=== PATIENT | male | born 1970 | race Caucasian/White ===

== ENCOUNTER 2023-06-24 09:26 | Outpatient (OUT) | payer BC, SELFPAY ==
[2023-06-24 10:11] LABS: Basophils Percent Auto 0.3 % (0.2-2.0); Eosinophils Absolute Auto 0.1 10^3/uL (0.0-0.7); Eosinophils Percent Auto 1.9 % (0.9-7.0); Hematocrit 45.4 % (42.0-54.0); Hemoglobin 15.3 g/dL (14.0-18.0); Immature Granulocytes Abs Auto 0.02 10^3/uL (0.00-0.03); Immature Granulocytes Pct Auto 0.3 % (0.0-0.5); Lymphocytes Absolute Auto 1.5 10^3/uL (1.2-3.8); Lymphocytes Percent Auto 25.3 % (20.5-60.0); Mean Corpuscular HGB Conc 33.7 g/dL (29.9-35.2); Mean Corpuscular Hemoglobin 32.2 pg (25.9-34.0); Mean Corpuscular Volume 95.6 fL (80.0-94.0); Mean Platelet Volume 9.9 fL (9.5-13.5); Monocytes Absolute Auto 0.5 10^3/uL (0.3-0.8); Monocytes Percent Auto 8.7 % (1.7-12.0); Neutrophils Absolute Auto 3.7 10^3/uL (1.4-6.5); Neutrophils Percent Auto 63.5 % (43.0-75.0); Platelet Count 234 10^3/uL (150-450); Red Blood Count 4.75 10^6/uL (4.70-6.10); Red Cell Distribution Width 12.8 % (11.0-15.0); White Blood Count 5.8 10^3/uL (4.0-11.0)
[2023-06-24 10:22] LABS: Microalbumin Urine Random <1.3 mg/dL (<=30.0)
[2023-06-24 11:01] LABS: Alanine Aminotransferase 48 U/L (16-63); Albumin Globulin Ratio 1.3; Albumin Level 4.2 g/dL (3.4-5.0); Alkaline Phosphatase 46 U/L (46-116); Aspartate Amino Transferase 23 U/L (15-37); BUN Creatinine Ratio 16.3; Bilirubin Total 0.3 mg/dL (0.2-1.0); Calcium 9.2 mg/dL (8.5-10.1); Carbon Dioxide 26.5 mmol/L (21.0-32.0); Chloride 105 mmol/L (98-107); Chol HDL Ratio 4.2; Cholesterol 232 mg/dL (<=200); Estimated GFR (African America >60 (>=60); Estimated GFR (Non-African Ame >60 (>=60); Globulin 3.3 g/dL; Glucose 129 mg/dL (74-106); HDL Cholesterol 55 mg/dL (40-60); Potassium 4.5 mmol/L (3.5-5.1); Sodium 140 mmol/L (136-145); Total Protein 7.5 g/dL (6.4-8.2); Triglycerides 64 mg/dL (<=150); VLDL CHOLESTEROL 12.8 mg/dL
[2023-06-24 11:11] LABS: Estimated Average Glucose 123 mg/dL; Glycohemoglobin A1C 5.9 % (4.5-6.2)
[2023-06-24 12:30] LABS: Prostate Specific Antigen Scrn 0.49 ng/mL (<=4.00)
== END 2023-06-24 09:27 | disposition home or self-care (01) ==
LOC: LAB 09:31
PROVIDERS: PCP Internal Medicine; Visit Provider Internal Medicine
DX: Z00.00 Encounter for general adult medical examination without abnormal findings (principal); Z12.5 Encounter for screening for malignant neoplasm of prostate
CPT/HCPCS: 36415; 80053; 80061; 82043; 83036; 85025; G0103

== ENCOUNTER 2023-11-30 13:46 | Outpatient (OUT) | payer BC, SELFPAY ==
[2023-11-30 14:56] LABS: Estimated Average Glucose 126 mg/dL
== END 2023-11-30 13:47 | disposition home or self-care (01) ==
LOC: LAB 13:49
PROVIDERS: PCP Internal Medicine; Visit Provider Internal Medicine
DX: E11.65 Type 2 diabetes mellitus with hyperglycemia (principal)
CPT/HCPCS: 36415; 83036

== ENCOUNTER 2024-07-14 21:13 | Emergency (ER) | payer BC, SELFPAY ==
--- OUTSIDE RECORDS SUMMARY | 2024-07-14 21:23 | XMS_ITS | CCD ---
Author Organization [facility] Care Team Providers Care Commanding Officer Garage Name Role Phone RODRIGO CASTORENA Consulting Unavailable STARLA WOODRUFF Admitting Unavailable KULDEEP, DR SALAZAR Primary Care Unavailable STARLA WOODRUFF Attending Unavailable KULDEEP, DR SALAZAR Primary Care Unavailable KULDEEP, DR SALAZAR Admitting Unavailable KULDEEP, DR SALAZAR Attending Unavailable KULDEEP, DR SALAZAR Admitting Unavailable KULDEEP, DR SALAZAR Attending Unavailable KULDEEP, DR SALAZAR Consulting Unavailable KULDEEP, DR SALAZAR Primary Care Unavailable Kuldeep, Ashish Unavailable REGINA COFFEY Attending REGINA Pitts Referring Unavailable Allergies Allergy Classification Reported Allergen(s) Allergy Type Date of Onset Reaction(s) Facility (1 source) Penicillins Drug allergy (disorder) 4 [facility] Repository (4 sources) Substance with penicillin structure and antibacterial mechanism of action (substance) Drug allergy Unknown [employer] Other Medications Current Medications Medication Drug Class(es) Dates Sig (Normalized) Sig (Original) atorvastatin 40 mg oral tablet (6 sources) HMG-CoA Reductase Inhibitor Start: 02-11-2024 take 40 mg by mouth once daily Atorvastatin Active 40 MG PO Daily February 11, 2024 12:00am take 1 tablet by aminata every twenty-four hours Atorvastatin Calcium 40 MG 1 tablet Oral ly Once a day Active azithromycin 250 mg oral tablet (2 sources) Macrolide Antimicrobial Start: 07-20-2023 Azithromycin 250 MG as directed Orally daily for 5 days Jun, Active 24 hr buPROPion hydrochloride 300 mg extended release oral tablet (7 sources) Aminoketone Start: 06-11-2024 take 1 tablet by mouth once daily Bupropion Hcl Active 0 .ROUTE .COMPLEX 90 June 11, 2024 1:27pm TAKE 1 TABLET BY MOUTH DAILY Start: 02-11-2024 End: 06-11-2024 take 300 mg by mouth once daily Bupropion Hcl Discontinued 300 MG PO Daily February 11, 2024 12:00am June 11, 2024 1:28pm buPROPion HCl ER (XL) 300 MG TAKE ONE TABLET BY MOUTH DAILY Orally Once a day Active citalopram 20 mg oral tablet (7 sources) Serotonin Reuptake Inhibitor Start: 06-11-2024 take 1 tablet by mouth once daily in the evening Citalopram Active 0 .ROUTE .COMPLEX 90 June 11, 2024 1:27pm TAKE ONE TABLET BY MOUTH EVERY EVENING Start: 02-11-2024 End: 06-11-2024 take 20 mg by mouth once daily at bedtime Citalopram Discontinued 20 MG PO Daily at bedtime February 11, 2024 12:00am June 11, 2024 1:28pm Citalopram Medora bromide 20 MG TAKE ONE TABLET BY MOUTH EVERY EVENING Orally Once a day Active Completed/Discontinued Medications Medication Drug Class(es) Dates Sig (Normalized) Sig (Original) doxycycline hyclate 100 mg oral capsule (4 sources) Tetracycline-clas s Drug Start: 01-04-2023 take 1 capsule by mouth twice daily as needed Doxycycline Hyclate 100 MG 1 capsule Orally Twice daily for 7 days Dec, Not-Taking/PRN Problems Active Problems Problem Classification Problem Date Documented Da te Episodic/Chronic Acute bronchitis (5 sources) Acute bronchitis; Translations: [Acute bronchitis due to other specified organisms] Episodic Allergic reactions (16 sources) Urticaria, unspecified; Translations: [Urticaria] Onset: 08-22-2018 Episodic Anxiety disorders (9 sources) Generalized anxiety disorder; Translations: [Generalized anxiety disorder] Chronic Diabetes mellitus with complications (18 sources) Hyperglycemia due to type 2 diabetes mellitus; Translations: [Type 2 diabetes mellitus with hyperglycemia] Chronic Diabetes mellitus without complication (16 sources) Impaired fasting glycemia; Translations: [Impaired fasting glucose] Episodic Disorders of lipid metabolism (9 sources) Hypercholesterolemi a; Translations: [Pure hypercholesterolemi a, unspecified] Chronic Gastrointestinal hemorrhage (8 sources) Hemorrhage of rectum and anus; Translations: [Hemorrhage of anus and rectum] Episodic Hyperplasia of prostate (8 sources) Large prostate ; Translations: [Benign prostatic hyperplasia without lower urinary tract symptoms] Chronic Malaise and fatigue (4 sources) Malaise; Translations: [Other malaise] Episodic Mood disorders (20 sources) Single episode of major depression in full remission; Translations: [Major depressive disorder, single episode, in full remission] Chronic Other circulatory disease (1 source) Elevated blood-pressure reading, without diagnosis of hypertension Episodic Other circulatory disease (2 sources) Elevated blood-pressure reading without diagnosis of hypertension; Translations: [Elevated blood-pressure reading, without diagnosis of hypertension] 02-11-2024 Episodic Other liver diseases (1 source) Steatosis of liver; Translations: [Fatty (change of) liver, not elsewhere classified] 06-23-2024 Chronic Other liver diseases (1 source) Fatty (change of) liver, not elsewhere classified; Translations: [Other chronic nonalcoholic liver disease] 06-25-2024 Chronic Other nutritional; endocrine; and metabolic disorders (6 sources) Overweight; Translations: [Overweight] 02-11-2024 Episodic Other nutritional; endocrine; and metabolic disorders (2 sources) Overweight; Translations: [Overweight] Episodic Other screening for suspected conditions (not mental disorders or infectious disease) (4 sources) Encounter for screening for malignant neoplasm of prostate; Translations: [Patient encounter status] Onset: 03-24-2022 Episodic Other skin disorders (1 source) Rash and other nonspecific skin eruption Episodic Other skin disorders (1 source) Disorder of skin of scrotum; Translations: [Rash and other nonspecific skin eruption] 02-11-2024 Episodic Other upper respiratory disease (4 sources) Seasonal allergic rhinitis; Translations: [Other seasonal allergic rhinitis] Chronic Other upper respiratory infections (20 sources) Acute pharyngitis, unspecified; Translations: [Acute pharyngitis] Onset: 05-13-2014 Episodic Unclassified (4 sources) Exposure to acute respiratory syndrome coronavirus 2; Translations: [Contact with and (suspected) exposure to COVID-19] Past or Other Problems Problem Classification Problem Date Documented Da te Episodic/Chronic Chronic obstructive pulmonary disease and bronchiectasis (4 sources) Bronchitis; Translations: [Bronchitis, not specified as acute or chronic] Onset: 07-31-2013 Episodic Nausea and vomiting (4 sources) Nausea; Translations: [Nausea] Onset: 09-28-2017 Episodic Other injuries and conditions due to external causes (4 sources) Traumatic AND/OR non-traumatic injury; Translations: [Other injury of unspecified body region, initial encounter] Onset: 02-01-2014 Episodic Spondylosis; intervertebral disc disorders; other back problems (4 sources) Nerve root disorder; Translations: [Radiculopathy, site unspecified] Onset: 02-01-2014 Episodic Unclassified (1 source) Suspected COVID-19 virus infection Z20.822 Viral infection (4 sources) Disease caused by 2019-nCoV; Translations: [COVID-19] Results Test Name Value Interpretation Reference Range Facil ity US RUQon 02-08-2024 US RUQ US RUQ History: Right upper quadrant pain. Nausea. Technique: Sonography of the right upper quadrant was performed. Comparison: None. Result: Pancreas: Normal sonographic appearance of the visualized portions with the tail not visualized. Liver: Diffusely increased echogenicity with decreased through-transmission, suggestive of steatosis. Enlarged, measuring around 18.4 cm in length. Focal area of relative decreased echogenicity near the gallbladder, measuring approximately 2.8 x 1.2 x 1.1 cm suggestive of fatty sparing. No suspicious lesion sonographically. Gallbladder: Normal caliber without cholelithiasis, sludge, wall thickening, or pericholecystic fluid. Biliary Ducts: No intrahepatic or extrahepatic bile duct dilation. CBD measures 0.4 cm. Right Kidney: Imaged portions unremarkable. Ascites: None. IMPRESSION: Impression: Diffuse hepatic steatosis with focal fatty sparing adjacent to the gallbladder. Unremarkable sonographic appearance of the gallbladder. ELECTRONICALLY SIGNED BY: Harry Quinones MD Normal Not Available CBC AUTO DIFFon 03-20-2022 BASO # 0.0 103/ul Normal 0.0-0.1 [facility] Comment on above: Performed By: #### C BC #### [facility] [address] [address] [address] Matt Hoang Basophils/100 WBC (Bld) 0.2 % Normal 0.2-2.0 [facility] Comment on above: Performed By: #### C BC #### [facility] [address] [address] [address] Matt Hoang EO # 0.1 103/ul Normal 0.0-0.7 [facility] Comment on above: Performed By: #### C BC #### [facility] [address] [address] [address] Matt Hoang Eosinophils/100 WBC (Bld) 1.5 % Normal 0.9-7.0 [facility] Comment on above: Performed By: #### C BC #### [facility] [address] [place] [address] Dr. Matt Hoang Erythrocyte distribution width (RBC) [Ratio] 12.5 % Normal 11.0-15.0 [facility] Comment on above: Performed By: #### C BC #### [facility] [address] [place] [address] Dr. Matt Hoang Hematocrit (Bld) [Volume fraction] 46.7 % Normal 42.0-54.0 [facility] Comment on above: Performed By: #### C BC #### [facility] [address] [place] [address] Dr. Matt Hoang Hemoglobin (Bld) [Mass/Vol] 15.4 g/dL Normal 14.0-18.0 [facility] Comment on above: Performed By: #### C BC #### [facility] [address] [place] [address] Dr. Matt Hoang IG # 0.01 10e3/ul Normal 0.00-0.03 [facility] Comment on above: Performed By: #### C BC #### [facility] [address] [place] [address] Dr. Matt Hoang IG % 0.2 % Normal 0.0-0.5 [facility] Comment on above: Performed By: #### C BC #### [facility] [address] [place] [address] Dr. Matt Hoang LYMPH # 1.8 103/ul Normal 1.2-3.8 [facility] Comment on above: Performed By: #### C BC #### [facility] [address] [place] [address] Dr. Matt Hoang Lymphocytes/100 WBC (Bld) 30.0 % Normal 20.5-60.0 [facility] Comment on above: Performed By: #### C BC #### [facility] [address] [place] [address] Dr. Matt Hoang MANUAL DIFF REQ NO Normal [facility] Comment on above: Performed By: #### C BC #### [facility] [address] [address] [address] Matt Hoang MCH (RBC) [Entitic mass] 31.5 pg Normal 25.9-34.0 [facility] Comment on above: Performed By: #### C BC #### [facility] [address] [place] [address] Dr. Matt Hoang MCHC (RBC) [Mass/Vol] 33.0 g/dL Normal 29.9-35.2 [facility] Comment on above: Performed By: #### C BC #### [facility] [address] [place] [address] Dr. Matt Hoang MCV (RBC) [Entitic vol] 95.5 fL Critically high 80.0-94.0 [facility] Comment on above: Performed By: #### C BC #### [facility] [address] [place] [address] Dr. Matt Hoang MONO # 0.6 103/ul Normal 0.3-0.8 [facility] Comment on above: Performed By: #### C BC #### [facility] [address] [place] [address] Dr. Matt Hoang Monocytes/100 WBC (Bld) 10.6 % Normal 1.7-12.0 [facility] Comment on above: Performed By: #### C BC #### [facility] [address] [place] [address] Dr. Matt Hoang NEUT # 3.4 103/ul Normal 1.4-6.5 [facility] Comment on above: Performed By: #### C BC #### [facility] [address] [place] [address] Dr. Matt Hoang Neutrophils/100 WBC (Bld) 57.5 % Normal 43.0-75.0 [facility] Comment on above: Performed By: #### C BC #### [facility] [address] [place] [address] Dr. Matt Hoang Platelet mean volume (Bld) [Entitic vol] 9.6 fL Normal 9.5-13.5 [facility] Comment on above: Performed By: #### C BC #### [facility] [address] [address] [address] Matt Hoang PLT 231 103/ul Normal 150-450 [facility] Comment on above: Performed By: #### C BC #### [facility] [address] [address] [address] Matt Hoang RBC 4.89 106/ul Normal 4.70-6.10 [facility] Comment on above: Performed By: #### C BC #### [facility] [address] [address] [address] Matt Hoang WBC 5.8 103/ul Normal 4.0-11.0 [facility] Comment on above: Performed By: #### C BC #### [facility] [address] [place] [address] Dr. Matt Hoang LIPID PROFILEon 03-20-2022 CHOL-HDL RATIO NORM SEE BELOW Normal [facility] Comment on above: Result Comment: 3.3 - 4.4 LOW RISK 4.4 - 7.1 AVERAGE RISK 7.1 - 11.0 MODERATE RISK >11.0 HIGH RISK Performed By: #### L IPID, CMP #### [facility] [address] [place] [address] Dr. Matt Hoang Cholesterol [Mass/Vol] 252 mg/dL Critically high <=200 [facility] Comment on above: Performed By: #### L IPID, CMP #### [facility] [address] [place] [address] Dr. Matt Hoang Cholesterol in HDL [Mass/Vol] 45 mg/dL Normal 40-60 [facility] Comment on above: Performed By: #### L IPID, CMP #### [facility] [address] [place] [address] Dr. Matt Hoang Cholesterol in LDL [Mass/Vol] 183.2 mg/dL Normal [facility] Comment on above: Performed By: #### L IPID, CMP #### [facility] [address] [place] [address] Dr. Matt Hoang Cholesterol.total/ Cholesterol in HDL [Mass ratio] 5.6 {ratio} Normal [facility] Comment on above: Performed By: #### L IPID, CMP #### [facility] [address] [address] [address] Matt Hoang HDL NORMAL > or = 60 mg/dl - LO W CARDIOVASCULAR RISK <40 mg/dl - HIGH CARDIOVASCULAR RISK Normal [facility] Comment on above: Performed By: #### L IPID, CMP #### [facility] [address] [address] [address] Matt Hoang LDL CALC NORMAL SEE BELOW Normal [facility] Comment on above: Result Comment: <100 mg/dl OPTIMAL 100 - 129 mg/dl NEAR OR ABOVE OPTIMAL 130 - 159 mg/dl BORDERLINE HIGH 160 - 189 mg/dl HIGH >190 mg/dl VERY HIGH Performed By: #### L IPID, CMP #### [facility] [address] [place] [address] Dr. Matt Hoang Triglyceride [Mass/Vol] 119 mg/dL Normal <=150 [facility] Comment on above: Performed By: #### L IPID, CMP #### [facility] [address] [address] [address] Matt Hoang VLDL CALC 23.8 mg/dL Normal [facility] Comment on above: Performed By: #### L IPID, CMP #### [facility] [address] [place] [address] Dr. Matt Hoang PROF 14(COMP METB)on 022 Albumin [Mass/Vol] 4.3 g/dL Normal 3.4-5.0 [facility] Comment on above: Performed By: #### L IPID, CMP #### [facility] [address] [place] [address] Dr. Matt Hoang Albumin/Globulin [Mass ratio] 1.3 {ratio} Normal [facility] Comment on above: Performed By: #### L IPID, CMP #### [facility] [address] [address] [address] Matt Hoang ALP [Catalytic activity/Vol] 52 U/L Normal 46-116 [facility] Comment on above: Performed By: #### L IPID, CMP #### [facility] [address] [address] [address] Matt Hoang ALT [Catalytic activity/Vol] 76 U/L Critically high 16-63 [facility] Comment on above: Performed By: #### L IPID, CMP #### [facility] [address] [address] [address] Matt Hoang Anion gap [Moles/Vol] 12.1 mmol/L Normal [facility] Comment on above: Performed By: #### L IPID, CMP #### [facility] [address] [address] [address] Matt Hoang AST [Catalytic activity/Vol] 27 U/L Normal 15-37 [facility] Comment on above: Performed By: #### L IPID, CMP #### [facility] [address] [place] [address] Dr. Matt Hoang Bilirubin [Mass/Vol] 0.4 mg/dL Normal 0.2-1.0 [facility] Comment on above: Performed By: #### L IPID, CMP #### [facility] [address] [place] [address] Dr. Matt Hoang Calcium [Mass/Vol] 8.7 mg/dL Normal 8.5-10.1 [facility] Comment on above: Performed By: #### L IPID, CMP #### [facility] [address] [address] [address] Matt Hoang Chloride [Moles/Vol] 104 mmol/L Normal 98-107 [facility] Comment on above: Performed By: #### L IPID, CMP #### [facility] [address] [address] [address] Matt Hoang CO2 [Moles/Vol] 28.3 mmol/L Normal 21.0-32.0 [facility] Comment on above: Performed By: #### L IPID, CMP #### [facility] [address] [address] [address] Matt Hoang Creatinine [Mass/Vol] 0.88 mg/dL Normal 0.70-1.30 [facility] Comment on above: Performed By: #### L IPID, CMP #### [facility] [address] [address] [address] Matt Hoang EGFR-AF BOLIVIAN >60 Normal >=60 [facility] Comment on above: Performed By: #### L IPID, CMP #### [facility] [address] [address] [address] Matt Hoang EGFR-NON AF BOLIVIAN >60 Normal >=60 [facility] Comment on above: Performed By: #### L IPID, CMP #### [facility] [address] [address] [address] Matt Hoang Globulin (S) [Mass/Vol] 3.2 g/dL Normal [facility] Comment on above: Performed By: #### L IPID, CMP #### [facility] [address] [address] [address] Matt Hoang Glucose [Mass/Vol] 125 mg/dL Critically high 74-106 [facility] Comment on above: Performed By: #### L IPID, CMP #### [facility] [address] [address] [address] Matt Hoang Potassium [Moles/Vol] 4.4 mmol/L Normal 3.5-5.1 [facility] Comment on above: Performed By: #### L IPID, CMP #### [facility] [address] [address] [address] Matt Hoang Protein [Mass/Vol] 7.5 g/dL Normal 6.1-8.2 [facility] Comment on above: Performed By: #### L IPID, CMP #### [facility] [address] [address] [address] Matt Hoang Sodium [Moles/Vol] 140 mmol/L Normal 136-145 [facility] Comment on above: Performed By: #### L IPID, CMP #### [facility] [address] [address] [address] Matt Hoang Urea nitrogen [Mass/Vol] 16.0 mg/dL Normal 7.0-18.0 [facility] Comment on above: Performed By: #### L IPID, CMP #### [facility] [address] [place], [place] [address] Dr. Matt Hoang Urea nitrogen/Creatinin e [Mass ratio] 18.2 mg/mg Normal [facility] Comment on above: Performed By: #### L IPID, CMP #### [facility] [address] [place], [place] [address] Dr. Matt Hoang CULTURE THROATon 07-05-2021 CULTURE THROAT Culture Observations : NORMAL RESPIRATORY COLBY. Normal [facility] Comment on above: Performed By: #### S SCRN, THRTCX #### [facility] [address] [id number] Papito Gonsales STREPT SCREENon 07-05-2021 STREP SCREEN A Negative Normal NEGATIVE [facility] Comment on above: Performed By: #### S SCRN, THRTCX #### [facility] [address] [id number] Papito Sandhuen Vital Signs Date Time Vital Sign Value Performing Clinician Facility 06-25-2024 09:05-0400 Body height 177.8 cm [facility] 06-25-2024 09:05-0400 Body mass index (BMI) [Ratio] 29.2 kg/m2 [facility] 06-25-2024 09:05-0400 Body weight 92.24 kg [facility] 06-25-2024 09:05-0400 Diastolic blood pressure 92 mm[Hg] [facility] 06-25-2024 09:05-0400 Heart rate 89 /min [facility] 06-25-2024 09:05-0400 Respiratory rate 12 /min [facility] [place] [facility] 06-25-2024 09:05-0400 Systolic blood pressure 130 mm[Hg] [facility] 02-13-2024 14:58-0400 Body height 177.8 cm [facility] 02-13-2024 14:58-0400 Body mass index (BMI) [Ratio] 29.4 kg/m2 [facility] 02-13-2024 14:58-0400 Body weight 93.09 kg [facility] 02-13-2024 14:58-0400 Diastolic blood pressure 106 mm[Hg] [facility] 02-13-2024 14:58-0400 Respiratory rate 12 /min [facility] [place] [facility] 02-13-2024 14:58-0400 Systolic blood pressure 137 mm[Hg] [facility] 12-05-2023 09:30-0500 Body height 177.8 cm Ashish Ball Other [facility] 12-05-2023 09:30-0500 Body mass index (BMI) [Ratio] 29.04 kg/m2 Ashish Ball Other [facility] [employer] Other 12-05-2023 09:30-0500 Body weight 91.81 kg Ashish Ball Other [facility] [employer] Other 12-05-2023 09:30-0500 Body weight 91.8 kg [facility] 12-05-2023 09:30-0500 Diastolic blood pressure 96 mm[Hg] Ashish Ball Other [facility] 12-05-2023 09:30-0500 Respiratory rate 12 /min Ashish Ball Other [facility] [employer] Other 12-05-2023 09:30-0500 Systolic blood pressure 141 mm[Hg] Ashish Ball Other [facility] 06-23-2023 11:00-0400 Body height 177.8 cm Ashish Ball Other [facility] [employer] Other 06-23-2023 11:00-0400 Body mass index (BMI) [Ratio] 28.72 kg/m2 Ashish Ball Other [facility] [employer] Other 06-23-2023 11:00-0400 Body weight 90.81 kg Ashish Ball Other [facility] [employer] Other 07-27-2023 11:00-0400 Diastolic blood pressure 87 mm[Hg] Ashish Hoffman Other [employer] Other 06-23-2023 11:00-0400 Respiratory rate 12 /min Ashish Hoffman Other [employer] Other 06-23-2023 11:00-0400 Systolic blood pressure 129 mm[Hg] Ashish Hoffman Other [employer] Other Encounters Encounter Date Encounter Type Care Provider Facility Start: 06-25-2024 End: 06-25-2024 ambulatory [facility] Work Phone: Start: 06-25-2024 End: 06-25-2024 Encounter for general adult medical examination without abnormal findings [facility] Start: 06-25-2024 End: 06-25-2024 Patient encounter procedure [facility] Work Phone: Start: 02-13-2024 End: 02-13-2024 ambulatory [facility] Work Phone: Start: 02-13-2024 End: 02-13-2024 Patient encounter procedure [facility]ician [facility] Work Phone: Start: 02-09-2024 End: 02-10-2024 ambulatory REGINA COFFEY Not Available Start: 02-08-2024 End: 02-08-2024 ambulatory REGINA COFFEY Not Available Start: 12-05-2023 End: 12-05-2023 ambulatory Ashish Hoffman Other [employer] Other Start: 12-05-2023 Office outpatient vi sit 25 minutes Ashish Kuldeep [facility] Start: 12-05-2023 End: 12-05-2023 Patient encounter procedure [facility] Physician [facility] Work Phone: Start: 11-30-2023 End: 11-30-2023 ambulatory Ashish Hoffman Other [employer] Other Start: 11-30-2023 Telephone encounter Ashish Hoffman [facility] Start: 07-20-2023 End: 07-20-2023 ambulatory Ashish Hoffman Other [employer] Other Start: 07-20-2023 Office outpatient vi sit 15 minutes Ashish Hoffman [facility] Start: 06-23-2023 End: 06-23-2023 ambulatory Ashish Hoffman Other [employer] Other Start: 06-23-2023 Encounter for genera l adult medical examination without abnormal findings Ashish Hoffman [facility] Start: 06-23-2023 Periodic preventive med est patient 40-64yrs Ashish Hoffman [facility] Start: 05-19-[address] ASHISH HOFFMAN Facili ty:H1 Start: 03-24-2022 Encounter for genera l adult medical examination without abnormal findings DR ASHISH HOFFMAN [facility] Start: 03-20-2022 End: 03-21-[address] ASHISH HOFFMAN Facility:H1 Start: 03-20-2022 End: 03-21-2022 Encounter for general adult medical examination without abnormal findings DR ASHISH HOFFMAN Facility:H1 Start: 03-15-2022 Adult health examination Ashish Hoffman Other [employer] Other Start: 07-05-2021 End: 07-05-2021 ambulatory RODRIGO CASTORENA Facility:H1 Procedures Date Procedure Procedure Detail Performing Clinician Start: 03-20-2022 PSA screening RODRIGO CAICEDO Comment on above: Performed By: #### [facility] #### [facility] [address] [place] [address] Dr. Matt Hoang Plan of Treatment Date Care Activity Detail Author Comprehensive metabo lic 2000 panel - Serum or Plasma [facility] enter [facility] Immunizations Immunization Date Immunization Notes Care Provider Fa dominik 11-13-2022 influenza, injectabl e, quadrivalent, preservative free Ashish Hoffman Other [facility] 03-06-2021 COVID-19 Vaccine Pfi zer - Documentation Purposes Only Ashish Hoffman Other [facility] 02-13-2021 COVID-19 Vaccine Pfi zer - Documentation Purposes Only Ashish Hoffman Other [facility] 09-18-2015 tetanus and diphther ia toxoids, adsorbed, preservative free, for adult use (5 Lf of tetanus toxoid and 2 Lf of diphtheria toxoid) Ashish Hoffman Other [facility] Payers Date Payer Category Payer Unknown [id number] 2.16.84 [id number] 1970 Unknown [id number] 2.16.84 [id number] 1970 Unknown [id number] 2.16.84 [id number] 1970 Unknown [id number] 2.16.84 [id number] 1970 Unknown [id number] 2.16.84 [id number] 1959 Private Health Insurance [id number] 1959 Self-pay [id number] 1959 Unknown [id number] [facility] [id number] Social History Date Type Detail Facility Sex Assigned At [employer] Other Start: 02-11-2024 Tobacco smoking stat us [facility]IS Never smoked tobacco (finding) [facility] Start: 1970 Sex Assigned At Male F [facility] Evaluation note 12-05-2023 Note Date & Type Note Facility 12-05-2023 Evaluation note Encounter Date Diagnosis Assessment Notes Nov, Type 2 diabetes mellitus with hyperglycemia, without long-term current use of insulin (ICD-10 - E11.65) This patient is following a comprehensive diabetic treatment plan. They are checking their feet daily for calluses and nonhealing ulcers. They are being seen for yearly dilated eye examinations. Goals: SBP less than 130, LDL less than 100, FBS less than 140, A1C less than 7%. They are checking their BS daily, will which are reviewed at the office visit. Continue regular routine monitoring of A1C,] Microalbumin, Dilated eye exam and Foot exam Elevated FBS > 125 Nov, Elevated BP without diagnosis of hypertension (ICD-10 - R03.0) This patient is instructed to consume a healthy, low-fat, low-salt diet. They are also encouraged to continue exercise to achieve/maintain a normal BMI. Patient is instructed on home BP measurements: - rest for 5 minutes w/o talking- positioned w/ feet on floor and arm supported- average best 2/3 readings w/ goal < 135/85 _update office in couple weeks Nov, Elevated cholesterol (ICD-10 - E78.00) Instructed on diet and exercise with continued statin therapy.Discussed the beneficial effects of lowering cholesterol in reducing the risk for cerebrovascular and cardiovascular disease. Nov, ANGELITO (generalized anxiety disorder) (ICD-10 - F41.1) Coping well, continues w/ high stress job Instructed on healthy diet and exercise Keep active, relaxation techniques discussed. Continue medication w/o interruption Avoid abrupt d/c of medications. Nov, Recurrent major depressive disorder, in full remission (ICD-10 - F33.42) Symptoms in remission, coping well. Instructed on healthy diet and exercise Keep active, relaxation techniques discussed. Continue medication w/o interruption Avoid abrupt d/c of medications. Nov, Overweight (ICD-10 - E66.3) This patient has been instructed on a low-fat, high-fiber diet. They are instructed to reduce calories, portion sizes and snacks. It is recommended that they exercise for 30 minutes, 3-5 times weekly. Nov, Scrotal rash (ICD-10 - R21) Avoid harsh soaps Keep clean and dry. OTC moisturizers and cortisone as needed Benadryl at [employer] Other Evaluation note 11-30-2023 Note Date & Type Note Facility 11-30-2023 Evaluation note Encounter Date Diagnosis Assessment Notes Nov, Type 2 diabetes mellitus with hyperglycemia , without long-term current use of insulin (ICD-10 - E11.65) [employer] Other Evaluation note 07-20-2023 Note Date & Type Note Facility 07-20-2023 Evaluation note Encounter Date Diagnosis Assessment Notes Jun, Acute bronchitis due to other specified organisms (ICD-10 - J20.8) Instructed to use Robitussin or Mucinex for cough, saline or Flonase NS for congestion, Tylenol for pain and fever. Jun, Suspected COVID-19 virus infection (ICD-10 - Z20.822) Always suspect COVID w/ recent increase in cases locally. Recommend testing. He denies known exposure [employer] Other Evaluation note 06-23-2023 Note Date & Type Note Facility 06-23-2023 Evaluation note Encounter Date Diagnosis Assessment Notes May, Elevated cholesterol (ICD-10 - E78.00) Instructed on diet and exercise with continued statin therapy.Discussed the beneficial effects of lowering cholesterol in reducing the risk for cerebrovascular and cardiovascular disease. May, Wellness examination (ICD-10 - Z00.00) Healthy diet and exercise. Reviewed age-appropriate preventive testing recommended. May, Type 2 diabetes mellitus with hyperglycemia, without long-term current use of insulin (ICD-10 - E11.65) This patient is following a comprehensive diabetic treatment plan. They are checking their feet daily for calluses and nonhealing ulcers. They are being seen for yearly dilated eye examinations. Goals: SBP less than 130, LDL less than 100, FBS less than 140, AC and A1C less than 7%. They are checking their BS daily, will which are reviewed at the office visit. Continue regular routine monitoring of A1C,] Microalbumin, Dilated eye exam and Foot exam May, ANGELITO (generalized anxiety disorder) (ICD-10 - F41.1) Feels as if he needs an adjustment. Stressed sticking to a routine. Healthy diet, exercise and keep active Increase SSRI May, Recurrent major depressive disorder, in full remission (ICD-10 - F33.42) Symptoms tolerable Continue healthy diet, exercise Continue Bupropion May, Screening PSA (prostate specific antigen) (ICD-10 - Z12.5) Yearly CHECO and PSA [employer] Other Evaluation note Note Date & Type Note Facility Evaluation note No assessment information availa [facility] Work Phone: Evaluation note Note Date & Type Note Facility Evaluation note Diagnosis Onset Date Elevated cholesterol acute ANGELITO (generalized anxiety disorder) acute Metabolic dysfunction-associ ated steatotic liver disease (MASLD) acute Overweight acute [id number] acute Screening PSA (prostate specific antigen) noneactive Wellness examination noneact [facility] Work Phone: History general Narrative - Reported Note Date & Type Note Facility History general Narrative - Reported Type Medical History Painless rectal bleeding Medical History Depression, major, in remission Medical History Benign prostatic hyp erplasia without lower urinary tract symptoms Medical History IFG (impaired fasting glucose) Medical History Controlled type 2 di abetes mellitus with hyperglycemia, without long-term current use of insulin Medical History Hypercholesterolemia Medical History COVID-19 Medical History Hyperglycemia Medical History Malaise Medical History Major depressive dis order, recurrent, in full remission Medical History Acute bronchitis due to other specified organisms Medical History Urticaria Surgical History CYSTOSCOPY 2008 Hospitalization History SEE SURGICAL HX [employer] Other Summary Purpose Family History Relationship Condition Age at Onset Recorded Date/T joana Not Specified Hypertension Unknown Relationship Condition Age at Onset Recorded Date/T joana mother Hypertension Unknown Advance Directives Advance Directive Response Recorded Date/ Time Advance Directives No December 26, 2023 2:23pm Chief Complaint and Reason for Visit Chief Complaint 6 Month review results Chief Complaint Wellness Reason for Visit Elevated cholesterol ANGELITO (generalized anxiety disorder) Metabolic dysfunction-associated steatotic liver disease (MASLD) Overweight [id number] Screening PSA (prostate specific antigen) Wellness examination Additional Source Comments (unrecognized sect ion and content) No Status Records FoundNo Status Records Found INFORMATION SOURCE (unrecogn ized section and content) DATE CREATED AUTHOR 05/20/2022 [facility] DATE CREATED AUTHOR AUTHOR'S ORGANIZ ATION 02/12/2024 [facility] EPIC REASON FOR VISIT (unrecogniz ed section and content) [facility]- [phone] 3Repeat Labs6 month Care Teams (unrecognized sec tion and content) Team Status: Active Member Role Status Dates Ashish Hoffman DO Primary Care Provider Active Team Status: Inactive Member Role Status Dates Ashish Hoffman DO Attending Provider Active Sta rt: December 05, 2023 End: December 05, 2023 Team Status: Inactive Member Role Status Dates Ashish Hoffman DO Primary Care Provide r, Attending Provider Active Start: February 13, 2024 End: February 13, 2024 Team Status: Inactive Member Role Status Dates Ashish Hoffman Primary Care Provide r, Attending Provider Active Start: June 25, 2024 End: June 25, 2024 Goals (unrecognized section and content) Goals may be documented in a n alternate section FOR RECORDS PERTAINING TO PATIENTS WHO ARE OR HAVE BEEN ENROLLED IN A CHEMICAL DEPENDENCY/SUBSTANCEABUSE PROGRAM, SOME INFORMATION MAY BE OMITTED. This clinical summary was aggregated from multiple sources. Caution should be exercised in using it in the provision of clinical care. This summary normalizes information from multiple sources, and as a consequence, information in this document may materially change the coding, format and clinical context of patient data. In addition, data may be omitted in some cases. CLINICAL DECISIONS SHOULD BE BASED ON THE PRIMARY CLINICAL RECORDS. [facility]PT [facility]. provides no warranty or guarantee of the accuracy or completeness of information in this document.
[2024-07-14 21:25] VITALS: BP 118/78; PULSE 91; TEMP 36.9; O2SAT 95; BMI 28.1
--- NOTE | 2024-07-14 21:30 | ED.GENADUL1 ---
HPI HPI - General Adult General Chief complaint: Extremity Injury, Upper Stated complaint: SWOLLEN HAND, BEE STING Time Seen by Provider: 07/14/24 21:17 Source: patient Mode of arrival: walk-in Limitations: no limitations History of Present Illness HPI narrative: 53-year-old male presents for swelling to the left third finger. He was stung by a bee shortly before coming into the emergency department and his finger became swollen and he could not get his ring off. If he had been stung anywhere else he would not have needed to come in. He tried getting the ring off but was not successful. Related Data Home Medications ?Medication ?Instructions ?Recorded ?Confirmed bupropion HCl 300 mg 24 hr tablet, 300 mg PO DAILY 07/14/24 07/14/24 extended release citalopram 20 mg tablet 20 mg PO DAILY 07/14/24 07/14/24 Allergies Allergy/AdvReac Type Severity Reaction Status Date / Time Penicillins Allergy Rash Verified 07/14/24 21:29 Opioid HPI Opioid Management Most Recent Opioid Data: No Data to Display Review of Systems ROS Narrative A ten point review of systems is negative except as noted above. Exam Narrative Exam Narrative: Nurses note and vital signs reviewed and patient is not hypoxic. General: The patient appears well and in no apparent distress. Patient is resting comfortably on cart. Skin: Warm, dry, no pallor noted. There is no rash noted. Head: Normocephalic, atraumatic Eye: Normal conjunctiva, no drainage Ears, Nose, Mouth, and Throat: oral mucosa is moist. Nares patent. Cardiovascular: Regular Rate and Rhythm Respiratory: Patient is in no distress, no accessory muscle use Back: non-tender GI: Soft and nontender Musculoskeletal: Left ring finger is swollen. Ring is in place. Neurological: A&O, normal speech Psychiatric: Cooperative Constitutional Vital Signs, click to edit/add: Last Vital Signs Temp 98.4 F 07/14/24 21:25 Pulse 91 H 07/14/24 21:25 Resp 18 07/14/24 21:25 BP 118/78 07/14/24 21:25 Pulse Ox 95 07/14/24 21:25 O2 Del Method Room Air 07/14/24 21:25 Course Vital Signs Vital signs: Vital Signs Temperature 98.4 F 07/14/24 21:25 Pulse Rate 91 H 07/14/24 21:25 Respiratory Rate 18 07/14/24 21:25 Blood Pressure 118/78 07/14/24 21:25 Pulse Oximetry 95 07/14/24 21:25 Oxygen Delivery Method Room Air 07/14/24 21:25 Temperature 98.4 F 07/14/24 21:25 Pulse Rate 91 H 07/14/24 21:25 Respiratory Rate 18 07/14/24 21:25 Blood Pressure 118/78 07/14/24 21:25 Pulse Oximetry 95 07/14/24 21:25 Oxygen Delivery Method Room Air 07/14/24 21:25 Medical Decision Making MDM Narrative Medical decision making narrative: The ring has been cut off by nursing staff and he is able to be discharged home. Differential Diagnosis Differential Diagnosis: Stuck ring, bee sting Discharge Plan Discharge Stand Alone Forms: Portal Instructions Chief Complaint: Extremity Injury, Upper Clinical Impression: Constriction injury of finger, Sting, bee Patient Disposition: Home, Self-Care Time of Disposition Decision: 21:29 Condition: Good Mode of Transportation: Private Vehicle Prescriptions / Home Meds: No Action bupropion HCl 300 mg tablet extended release 24 hr 300 mg PO DAILY citalopram 20 mg tablet 20 mg PO DAILY Print Language: Japanese Instructions: Insect Bite or Sting (ED) Referrals: Ashish Light DO [Primary Care Provider] - 1 week
--- NOTE | 2024-07-14 21:40 | NUTR.NU ---
PT STUNG BY BEE. SWELLING TOO LEFT HAND. PT STATES CAN'T GET RING OFF D/T SWELLING. RING CUTTER USED AT BEDSIDE TO REMOVE RING PER PT REQUEST
== END 2024-07-14 21:45 | disposition home or self-care (01) ==
PROVIDERS: Emergency Provider Emergency Medicine; PCP Internal Medicine
DX: S60.443A External constriction of left middle finger, initial encounter (principal); T63.441A Toxic effect of venom of bees, accidental (unintentional), initial encounter; W49.04XA Ring or other jewelry causing external constriction, initial encounter
CPT/HCPCS: 99281

== ENCOUNTER 2024-08-20 09:42 | Outpatient (OUT) | payer BC, SELFPAY ==
[2024-08-20 10:05] LABS: Basophils Percent Auto 0.3 % (0.2-2.0); Eosinophils Absolute Auto 0.1 10^3/uL (0.0-0.7); Eosinophils Percent Auto 1.8 % (0.9-7.0); Hematocrit 47.1 % (42.0-54.0); Hemoglobin 15.8 g/dL (14.0-18.0); Immature Granulocytes Abs Auto 0.01 10^3/uL (0.00-0.03); Immature Granulocytes Pct Auto 0.2 % (0.0-0.5); Lymphocytes Absolute Auto 1.6 10^3/uL (1.2-3.8); Lymphocytes Percent Auto 24.4 % (20.5-60.0); Mean Corpuscular HGB Conc 33.5 g/dL (29.9-35.2); Mean Corpuscular Hemoglobin 31.7 pg (25.9-34.0); Mean Corpuscular Volume 94.6 fL (80.0-94.0); Mean Platelet Volume 9.5 fL (9.5-13.5); Monocytes Absolute Auto 0.5 10^3/uL (0.3-0.8); Monocytes Percent Auto 8.2 % (1.7-12.0); Neutrophils Absolute Auto 4.3 10^3/uL (1.4-6.5); Neutrophils Percent Auto 65.1 % (43.0-75.0); Platelet Count 223 10^3/uL (150-450); Red Blood Count 4.98 10^6/uL (4.70-6.10); Red Cell Distribution Width 12.4 % (11.0-15.0); White Blood Count 6.6 10^3/uL (4.0-11.0)
[2024-08-20 10:27] LABS: Estimated Average Glucose 120 mg/dL; Glycohemoglobin A1C 5.8 % (4.5-6.2)
[2024-08-20 10:50] LABS: Alanine Aminotransferase 47 U/L (16-63); Albumin Globulin Ratio 1.3; Albumin Level 4.1 g/dL (3.4-5.0); Alkaline Phosphatase 49 U/L (46-116); Anion Gap 11.1; Aspartate Amino Transferase 19 U/L (15-37); Bilirubin Total 0.3 mg/dL (0.2-1.0); Calcium 9.1 mg/dL (8.5-10.1); Carbon Dioxide 28.1 mmol/L (21.0-32.0); Chloride 105 mmol/L (98-107); Chol HDL Ratio 5.3; Cholesterol 237 mg/dL (<=200); Estimated GFR (African America >60 (>=60); Estimated GFR (Non-African Ame >60 (>=60); Globulin 3.2 g/dL; Glucose 129 mg/dL (74-106); HDL Cholesterol 45 mg/dL (40-60); Potassium 4.2 mmol/L (3.5-5.1); Sodium 140 mmol/L (136-145); Total Protein 7.3 g/dL (6.4-8.2); Triglycerides 123 mg/dL (<=150); VLDL CHOLESTEROL 24.6 mg/dL
[2024-08-20 11:00] LABS: Prostate Specific Antigen Scrn 0.54 ng/mL (<=4.00)
== END 2024-08-20 09:43 | disposition home or self-care (01) ==
LOC: LAB 09:45
PROVIDERS: PCP Internal Medicine; Visit Provider Internal Medicine
DX: Z00.00 Encounter for general adult medical examination without abnormal findings (principal); Z12.5 Encounter for screening for malignant neoplasm of prostate
CPT/HCPCS: 36415; 80053; 80061; 83036; 85025; G0103

== ENCOUNTER 2024-12-31 10:10 | Outpatient (OUT) | payer BC, SELFPAY ==
--- OUTSIDE RECORDS SUMMARY | 2024-12-31 10:23 | XMS_ITS | CCD ---
Author Organization [facility] Care Team Providers Care Warehouse Picker Name Role Phone RODRIGO CASTORENA Consulting Unavailable [...] source) Penicillins Drug allergy (disorder) 4 [facility] (4 sources) Substance with penicillin structure and antibacterial mechanism of action (substance) Drug allergy Unknown [facility] Other Medications Current Medications Medication Drug Class(es) [...] 2024 12:00am June 11, 2024 1:28pm Citalopram [place] bromide 20 MG TAKE ONE TABLET BY [...] BASO # 0.0 103/ul Normal 0.0-0.1 [facility] Comment on above: Performed By: #### C BC #### [facility] [address] [address] [address] Matt Hoang Basophils/100 WBC (Bld) 0.2 % Normal 0.2-2.0 [facility] Comment on above: Performed By: #### C BC #### [facility] [address] [address] [address] Matt Hoang EO # 0.1 103/ul Normal 0.0-0.7 [facility] Comment on above: Performed By: #### C BC #### [facility] [address] [address] [address] Matt Hoang Eosinophils/100 WBC (Bld) 1.5 % Normal 0.9-7.0 [facility] Comment on above: Performed By: #### C BC #### [facility] [address] [place] [address] Dr. Matt Hoang Erythrocyte distribution width (RBC) [Ratio] 12.5 % Normal 11.0-15.0 [facility] Comment on above: Performed By: #### C BC #### [facility] [address] [place] [address] Dr. Matt Hoang Hematocrit (Bld) [Volume fraction] 46.7 % Normal 42.0-54.0 [facility] Comment on above: Performed By: #### C BC #### [facility] [address] [place] [address] Dr. Matt Hoang Hemoglobin (Bld) [Mass/Vol] 15.4 g/dL Normal 14.0-18.0 [facility] Comment on above: Performed By: #### C BC #### [facility] [address] [place] [address] Dr. Matt Hoang IG # 0.01 10e3/ul Normal 0.00-0.03 [facility] Comment on above: Performed By: #### C BC #### [facility] [address] [place] [address] Dr. Matt Hoang IG % 0.2 % Normal 0.0-0.5 [facility] Comment on above: Performed By: #### C BC #### [facility] [address] [place] [address] Dr. Matt Hoang LYMPH # 1.8 103/ul Normal 1.2-3.8 [facility] Comment on above: Performed By: #### C BC #### [facility] [address] [place] [address] Dr. Matt Hoang Lymphocytes/100 WBC (Bld) 30.0 % Normal 20.5-60.0 [facility] Comment on above: Performed By: #### C BC #### [facility] [address] [place] [address] Dr. Matt Hoang MANUAL DIFF REQ NO Normal [facility] Comment on above: Performed By: #### C BC #### [facility] [address] [address] [address] Matt Hoang MCH (RBC) [Entitic mass] 31.5 pg Normal 25.9-34.0 [facility] Comment on above: Performed By: #### C BC #### [facility] [address] [place] [address] Dr. Matt Hoang MCHC (RBC) [Mass/Vol] 33.0 g/dL Normal 29.9-35.2 [facility] Comment on above: Performed By: #### C BC #### [facility] [address] [place] [address] Dr. Matt Hoang MCV (RBC) [Entitic vol] 95.5 fL Critically high 80.0-94.0 [facility] Comment on above: Performed By: #### C BC #### [facility] [address] [place] [address] Dr. Matt Hoang MONO # 0.6 103/ul Normal 0.3-0.8 [facility] Comment on above: Performed By: #### C BC #### [facility] [address] [place] [address] Dr. Matt Hoang Monocytes/100 WBC (Bld) 10.6 % Normal 1.7-12.0 [facility] Comment on above: Performed By: #### C BC #### [facility] [address] [place] [address] Dr. Matt Hoang NEUT # 3.4 103/ul Normal 1.4-6.5 [facility] Comment on above: Performed By: #### C BC #### [facility] [address] [place] [address] Dr. Matt Hoang Neutrophils/100 WBC (Bld) 57.5 % Normal 43.0-75.0 [facility] Comment on above: Performed By: #### C BC #### [facility] [address] [place] [address] Dr. Matt Hoang Platelet mean volume (Bld) [Entitic vol] 9.6 fL Normal 9.5-13.5 [facility] Comment on above: Performed By: #### C BC #### [facility] [address] [address] [address] Matt Hoang PLT 231 103/ul Normal 150-450 [facility] Comment on above: Performed By: #### C BC #### [facility] [address] [address] [address] Matt Hoang RBC 4.89 106/ul Normal 4.70-6.10 [facility] Comment on above: Performed By: #### C BC #### [facility] [address] [address] [address] Matt Hoang WBC 5.8 103/ul Normal 4.0-11.0 [facility] Comment on above: Performed By: #### C BC #### [facility] [address] [place] [address] Dr. Matt Hoang LIPID PROFILEon 03-20-2022 CHOL-HDL RATIO NORM SEE BELOW Normal [facility] Comment on above: Result Comment: 3.3 - 4.4 LOW RISK 4.4 - 7.1 AVERAGE RISK 7.1 - 11.0 MODERATE RISK >11.0 HIGH RISK Performed By: #### L IPID, CMP #### [facility] [address] [place] [address] Dr. Matt Hoang Cholesterol [Mass/Vol] 252 mg/dL Critically high <=200 [facility] Comment on above: Performed By: #### L IPID, CMP #### [facility] [address] [place] [address] Dr. Matt Hoang Cholesterol in HDL [Mass/Vol] 45 mg/dL Normal 40-60 [facility] Comment on above: Performed By: #### L IPID, CMP #### [facility] [address] [place] [address] Dr. Matt Hoang Cholesterol in LDL [Mass/Vol] 183.2 mg/dL Normal [facility] Comment on above: Performed By: #### L IPID, CMP #### [facility] [address] [place] [address] Dr. Matt Hoang Cholesterol.total/ Cholesterol in HDL [Mass ratio] 5.6 {ratio} Normal [facility] Comment on above: Performed By: #### L IPID, CMP #### [facility] [address] [address] [address] Matt Hoang HDL NORMAL > or = 60 mg/dl - LO W CARDIOVASCULAR RISK <40 mg/dl - HIGH CARDIOVASCULAR RISK Normal [facility] Comment on above: Performed By: #### L IPID, CMP #### [facility] [address] [address] [address] Matt Hoang LDL CALC NORMAL SEE BELOW Normal [facility] Comment on above: Result Comment: <100 mg/dl OPTIMAL 100 - 129 mg/dl NEAR OR ABOVE OPTIMAL 130 - 159 mg/dl BORDERLINE HIGH 160 - 189 mg/dl HIGH >190 mg/dl VERY HIGH Performed By: #### L IPID, CMP #### [facility] [address] [place] [address] Dr. Matt Hoang Triglyceride [Mass/Vol] 119 mg/dL Normal <=150 [facility] Comment on above: Performed By: #### L IPID, CMP #### [facility] [address] [address] [address] Matt Hoang VLDL CALC 23.8 mg/dL Normal [facility] Comment on above: Performed By: #### L IPID, CMP #### [facility] [address] [place] [address] Dr. Matt Hoang PROF 14(COMP METB)on 022 Albumin [Mass/Vol] 4.3 g/dL Normal 3.4-5.0 [facility] Comment on above: Performed By: #### L IPID, CMP #### [facility] [address] [place] [address] Dr. Matt Hoang Albumin/Globulin [Mass ratio] 1.3 {ratio} Normal [facility] Comment on above: Performed By: #### L IPID, CMP #### [facility] [address] [address] [address] Matt Hoang ALP [Catalytic activity/Vol] 52 U/L Normal 46-116 [facility] Comment on above: Performed By: #### L IPID, CMP #### [facility] [address] [address] [address] Matt Hoang ALT [Catalytic activity/Vol] 76 U/L Critically high 16-63 [facility] Comment on above: Performed By: #### L IPID, CMP #### [facility] [address] [address] [address] Matt Hoang Anion gap [Moles/Vol] 12.1 mmol/L Normal [facility] Comment on above: Performed By: #### L IPID, CMP #### [facility] [address] [address] [address] Matt Hoang AST [Catalytic activity/Vol] 27 U/L Normal 15-37 [facility] Comment on above: Performed By: #### L IPID, CMP #### [facility] [address] [place] [address] Dr. Matt Hoang Bilirubin [Mass/Vol] 0.4 mg/dL Normal 0.2-1.0 [facility] Comment on above: Performed By: #### L IPID, CMP #### [facility] [address] [place] [address] Dr. Matt Hoang Calcium [Mass/Vol] 8.7 mg/dL Normal 8.5-10.1 [facility] Comment on above: Performed By: #### L IPID, CMP #### [facility] [address] [address] [address] Matt Hoang Chloride [Moles/Vol] 104 mmol/L Normal 98-107 [facility] Comment on above: Performed By: #### L IPID, CMP #### [facility] [address] [address] [address] Matt Hoang CO2 [Moles/Vol] 28.3 mmol/L Normal 21.0-32.0 [facility] Comment on above: Performed By: #### L IPID, CMP #### [facility] [address] [address] [address] Matt Hoang Creatinine [Mass/Vol] 0.88 mg/dL Normal 0.70-1.30 [facility] Comment on above: Performed By: #### L IPID, CMP #### [facility] [address] [address] [address] Matt Hoang EGFR-AF ROMANIAN >60 Normal >=60 [facility] Comment on above: Performed By: #### L IPID, CMP #### [facility] [address] [address] [address] Matt Hoang EGFR-NON AF ROMANIAN >60 Normal >=60 [facility] Comment on above: Performed By: #### L IPID, CMP #### [facility] [address] [address] [address] Matt Hoang Globulin (S) [Mass/Vol] 3.2 g/dL Normal [facility] Comment on above: Performed By: #### L IPID, CMP #### [facility] [address] [address] [address] Matt Hoang Glucose [Mass/Vol] 125 mg/dL Critically high 74-106 [facility] Comment on above: Performed By: #### L IPID, CMP #### [facility] [address] [address] [address] Matt Hoang Potassium [Moles/Vol] 4.4 mmol/L Normal 3.5-5.1 [facility] Comment on above: Performed By: #### L IPID, CMP #### [facility] [address] [address] [address] Matt Hoang Protein [Mass/Vol] 7.5 g/dL Normal 6.1-8.2 [facility] Comment on above: Performed By: #### L IPID, CMP #### [facility] [address] [address] [address] Matt Hoang Sodium [Moles/Vol] 140 mmol/L Normal 136-145 [facility] Comment on above: Performed By: #### L IPID, CMP #### [facility] [address] [address] [address] Matt Hoang Urea nitrogen [Mass/Vol] 16.0 mg/dL Normal 7.0-18.0 [facility] Comment on above: Performed By: #### L IPID, CMP #### [facility] [address] [place], [place] [address] Dr. Matt Hoang Urea nitrogen/Creatinin e [Mass ratio] 18.2 mg/mg Normal [facility] Comment on above: Performed By: #### L IPID, CMP #### [facility] [address] [place], [place] [address] Dr. Matt Hoang CULTURE THROATon 07-05-2021 CULTURE THROAT Culture Observations : NORMAL RESPIRATORY COLBY. Normal [facility] Comment on above: Performed By: #### S SCRN, THRTCX #### [facility] [address] [id number] Papito Gonsales STREPT SCREENon 07-05-2021 STREP SCREEN A Negative Normal NEGATIVE [facility] Comment on above: Performed By: #### S SCRN, THRTCX #### [facility] [address] [id number] Papito Sandhuen Vital Signs Date Time Vital Sign Value Performing Clinician Facility 06-25-2024 09:05-0400 Body height 177.8 cm [facility] 06-25-2024 09:05-0400 Body mass index (BMI) [Ratio] 29.2 kg/m2 [facility] 06-25-2024 09:05-0400 Body weight 92.24 kg [facility] 06-25-2024 09:05-0400 Diastolic blood pressure 92 mm[Hg] [facility] 06-25-2024 09:05-0400 Heart rate 89 /min [facility] 06-25-2024 09:05-0400 Respiratory rate 12 /min [facility] 06-25-2024 09:05-0400 Systolic blood pressure 130 mm[Hg] [facility] 02-13-2024 14:58-0400 Body height 177.8 cm [facility] 02-13-2024 14:58-0400 Body mass index (BMI) [Ratio] 29.4 kg/m2 [facility] 02-13-2024 14:58-0400 Body weight 93.09 kg [facility] 02-13-2024 14:58-0400 Diastolic blood pressure 106 mm[Hg] [facility] 02-13-2024 14:58-0400 Respiratory rate 12 /min [facility] 02-13-2024 14:58-0400 Systolic blood pressure 137 mm[Hg] [facility] 12-05-2023 09:30-0500 Body height 177.8 cm Ashish Ball Other [facility] 12-05-2023 09:30-0500 Body mass index (BMI) [Ratio] 29.04 kg/m2 Ashish Ball Other [facility] [employer] Other 12-05-2023 09:30-0500 Body weight 91.81 kg Ashish Ball Other [facility] Other 12-05-2023 09:30-0500 Body weight 91.8 kg [facility] 12-05-2023 09:30-0500 Diastolic blood pressure 96 mm[Hg] Ashish Ball Other [facility] 12-05-2023 09:30-0500 Respiratory rate 12 /min Ashish Ball Other [facility] [employer] Other 12-05-2023 09:30-0500 Systolic blood pressure 141 mm[Hg] Ashish Ball Other [facility] 06-23-2023 11:00-0400 Body height 177.8 cm Ashish Ball Other [facility] [employer] Other 06-23-2023 11:00-0400 Body mass index (BMI) [Ratio] 28.72 kg/m2 Ashish Ball Other [facility] [employer] Other 06-23-2023 11:00-0400 Body weight 90.81 kg Ashish Ball Other [facility] [employer] Other 07-27-2023 11:00-0400 Diastolic blood pressure 87 mm[Hg] Ashish Hoffman Other [facility] Other 06-23-2023 11:00-0400 Respiratory rate 12 /min Ashish Hoffman Other [facility] Other 06-23-2023 11:00-0400 Systolic blood pressure 129 mm[Hg] Ashish Hoffman Other [facility] Other Encounters Encounter Date Encounter Type Care Provider Facility Start: 06-25-2024 End: 06-25-2024 ambulatory [facility] Work Phone: Start: 06-25-2024 End: 06-25-2024 Encounter for general adult medical examination without abnormal findings [facility] Start: 06-25-2024 End: 06-25-2024 Patient encounter procedure [facility] Work Phone: Start: 02-13-2024 End: 02-13-2024 ambulatory [facility] Work Phone: Start: 02-13-2024 End: 02-13-2024 Patient encounter procedure [facility] Work Phone: Start: 02-09-2024 End: 02-10-2024 ambulatory REGINA COFFEY Not Available Start: 02-08-2024 End: 02-08-2024 ambulatory REGINA COFFEY Not Available Start: 12-05-2023 End: 12-05-2023 ambulatory Ashish Hoffman Other [facility] Other Start: 12-05-2023 Office outpatient vi sit 25 minutes Ashish Kuldeep [facility] Start: 12-05-2023 End: 12-05-2023 Patient encounter procedure [facility] Work Phone: Start: 11-30-2023 End: 11-30-2023 ambulatory Ashish Hoffman Other [facility] Other Start: 11-30-2023 Telephone encounter Ashish Hoffman [facility] Start: 07-20-2023 End: 07-20-2023 ambulatory Ashish Hoffman Other [facility] Other Start: 07-20-2023 Office outpatient vi sit 15 minutes Ashish Hoffman [facility] Start: 06-23-2023 End: 06-23-2023 ambulatory Ashish Hfofman Other [facility] Other Start: 06-23-2023 Encounter for genera l adult medical examination without abnormal findings Ashish Hoffman [facility] Start: 06-23-2023 Periodic preventive med est patient 40-64yrs Ashish Hoffman [facility] Start: 05-19-[address] ASHISH HOFFMAN Facili ty:[facility]1 Start: 03-24-2022 Encounter for genera l adult medical examination without abnormal findings DR ASHISH HOFFMAN [facility] Start: 03-20-2022 End: 03-21-[address] ASHISH HOFFMAN Facility:[facility] Start: 03-20-2022 End: 03-21-2022 Encounter for general adult medical examination without abnormal findings DR ASHISH HOFFMAN Facility:[facility] Start: 03-15-2022 Adult health examination Ashish Hoffman Other [facility] Other Start: 07-05-2021 End: 07-05-2021 ambulatory RODRIGO CASTORENA Facility:[facility] Procedures Date Procedure Procedure Detail Performing Clinician Start: 03-20-2022 PSA screening RODRIGO CAICEDO Comment on above: Performed By: #### P [facility] #### [facility] [address] [place] [address] Dr. Matt Hoang Plan of Treatment Date Care Activity Detail Author Comprehensive metabo lic 2000 panel - Serum or Plasma [facility] enter [facility] Immunizations Immunization Date Immunization Notes Care Provider Fa dominik 11-13-2022 influenza, injectabl e, quadrivalent, preservative free Ashish Hoffman Other [facility] 03-06-2021 COVID-19 Vaccine Pfi zer - Documentation Purposes Only Ashish Hoffman Other [facility] 02-13-2021 COVID-19 Vaccine Pfi zer - Documentation Purposes Only Ashish Hoffman Other [facility] 09-18-2015 tetanus and diphther ia toxoids, adsorbed, preservative free, for adult use (5 Lf of tetanus toxoid and 2 Lf of diphtheria toxoid) Ashish Hoffman Other [facility] Payers Date Payer Category Payer Unknown [id number] 2.16.84 [id number] 1970 Unknown [id number] 2.16.84 [id number] 1970 Unknown [id number] 2.16.84 [id number] 1970 Unknown [id number] 2.16.84 [id number] 1970 Unknown [id number] 2.16.84 [id number] 1959 Private Health Insurance [id number] 1959 Self-pay [id number] 1959 Unknown [id number] [facility] [id number] Social History Date Type Detail Facility Sex Assigned At [facility] Other Start: 02-11-2024 Tobacco smoking stat us OHIS Never smoked tobacco (finding) [facility] Start: 1970 Sex Assigned At Male F [facility] Evaluation note 12-05-2023 Note Date & Type [...] moisturizers and cortisone as needed Benadryl at [facility] Other Evaluation note 11-30-2023 Note Date & Type Note Facility 11-30-2023 Evaluation note Encounter Date Diagnosis Assessment Notes Nov, Type 2 diabetes mellitus with hyperglycemia , without long-term current use of insulin (ICD-10 - E11.65) [facility] Other Evaluation note 07-20-2023 Note Date & [...] locally. Recommend testing. He denies known exposure [facility] Other Evaluation note 06-23-2023 Note Date & [...] (ICD-10 - Z12.5) Yearly CHECO and PSA [facility] Other Evaluation note Note Date & Type Note Facility Evaluation note No assessment information availa [facility] Work Phone: Evaluation note Note Date & Type Note Facility Evaluation note Diagnosis Onset Date Elevated cholesterol acute ANGELITO (generalized anxiety disorder) acute Metabolic dysfunction-associ ated steatotic liver disease (MASLD) acute Overweight acute [id number] acute Screening PSA (prostate specific antigen) noneactive Wellness examination noneact tremayne [facility] Work Phone: History general Narrative - Reported [...] CYSTOSCOPY 2008 Hospitalization History SEE SURGICAL HX [facility] Other Summary Purpose Family History Relationship Condition [...] Metabolic dysfunction-associated steatotic liver disease (MASLD) Overweight [id number] Screening PSA (prostate specific antigen) Wellness examination Additional Source Comments (unrecognized sect ion and content) No Status Records FoundNo Status Records Found INFORMATION SOURCE (unrecogn ized section and content) DATE CREATED AUTHOR 05/20/2022 [facility] DATE CREATED AUTHOR AUTHOR'S ORGANIZ ATION 02/12/2024 [facility] EPIC REASON FOR VISIT (unrecogniz [...] BE BASED ON THE PRIMARY CLINICAL RECORDS. [employer] [facility]. provides no warranty or guarantee of the accuracy or completeness of information in this document.
--- NOTE | 2024-12-31 10:24 | XR_ITS ---
The [address] [address] Patient Name: GABBY NEUMANN MRN: [id number] date: 1970 Sex: M Assigned Patient Location: RAD Current Patient Location: RAD Accession/Order Number: [id number] Exam Date: 12/31/2024 10:25 Report Date: 12/31/2024 14:52 At the request of: MARIE HOFFMAN Procedure: XR chest 2V PROCEDURE: XR chest 2V DATE: 12/31/2024 10:25 AM EST COMPARISONS: None. CLINICAL INDICATION: 54 years Male Cough FINDINGS: The cardiomediastinal silhouette and pulmonary vasculature are within normal limits. The lungs are clear. No evidence of consolidating infiltrates to suggest pneumonia. There is no evidence of pleural effusion or pneumothorax. XR/XR chest 2V IMPRESSION: Chest radiograph is within normal limits. Electronically authenticated by: JUSTINA GAGNON Date: 12/31/2024 14:52
== END 2024-12-31 10:11 | disposition home or self-care (01) ==
LOC: RAD 10:15
PROVIDERS: PCP Internal Medicine; Visit Provider Internal Medicine
DX: R05.9 Cough, unspecified (principal)
CPT/HCPCS: 71046

== ENCOUNTER 2025-07-22 09:21 | Outpatient (OUT) | payer BC, SELFPAY ==
--- OUTSIDE RECORDS SUMMARY | 2025-07-22 09:31 | XMS_ITS | CCD ---
Author Organization [facility] Care Team Providers Care Human Resources Compensation Analyst Name Role Phone RODRIGO CASTORENA Consulting Unavailable STARLA WOODRUFF Admitting Unavailable YASMIN, DR SALAZAR Primary Care Unavailable STARLA WOODRUFF Attending Unavailable YASMIN, DR SALAZAR Primary Care Unavailable YASMIN, DR SALAZAR Admitting Unavailable YASMIN, DR SALAZAR Attending Unavailable YASMIN, DR SALAZAR Admitting Unavailable YASMIN, DR SALAZAR Attending Unavailable YASMIN, DR SALAZAR Consulting Unavailable YASMIN, DR SALAZAR Primary Care Unavailable Ashish Hoffman Unavailable REGINA COFFEY Attending REGINA Pitts Referring Ashish Schultz DO Primary Care Provider Ashish Hoffman DO Attending Provider Allergies Allergy Classification Reported Allergen(s) Allergy Type Date of Onset Reaction(s) Facility (1 source) Penicillins Drug allergy (disorder) 4 [facility] Repository (4 sources) Substance with penicillin structure and antibacterial mechanism of action (substance) Drug allergy Unknown [facility] Other Medications Current Medications Medication Drug Class(es) Dates Sig (Normalized) Sig (Original) atorvastatin 40 mg oral tablet (7 sources) HMG-CoA Reductase Inhibitor Start: 02-11-2024 take 1 tablet by mouth once daily Atorvastatin 40 mg tablet Active 40 MG PO Daily February 11, 2024 12:00am On Hold: lifestyle modification trial Complies with drug therapy take 1 tablet by aminata th every twenty-four hours Atorvastatin Calcium 40 MG 1 tablet Oral ly Once a day Active azithromycin 250 mg oral tablet (2 sources) Macrolide Antimicrobial Start: 07-20-2023 Azithromycin 250 MG as directed Orally daily for 5 days Jun, Active 24 hr buPROPion hydrochloride 300 mg extended release oral tablet (12 sources) Aminoketone Start: 06-11-2024 End: 06-02-2025 take 1 tablet by mouth once daily Bupropion Hcl 300 mg tablet extended release 24 hr Active 0 .ROUTE .COMPLEX 90 June 02, 2025 7:41am TAKE 1 TABLET BY MOUTH DAILY Complies with drug therapy Start: 02-11-2024 End: 06-11-2024 take 1 tablet by mouth once daily Bupropion Hcl 300 mg tablet extended release 24 hr Discontinued 300 MG PO Daily February 11, 2024 12:00am June 11, 2024 1:28pm buPROPion HCl ER (XL) 300 MG TAKE ONE TABLET BY MOUTH DAILY Orally Once a day Active citalopram 20 mg oral tablet (12 sources) Serotonin Reuptake Inhibitor Start: 06-11-2024 End: 06-02-2025 take 1 tablet by mouth once daily in the evening Citalopram 20 mg tablet Active 0 .ROUTE .COMPLEX June 02, 2025 7:41am TAKE ONE TABLET BY MOUTH EVERY EVENING Complies with drug therapy Start: 02-11-2024 End: 06-11-2024 take 1 tablet by mouth once daily at bedtime Citalopram 20 mg tablet Discontinued 20 MG PO Daily at bedtime February 11, 2024 12:00am June 11, 2024 1:28pm Citalopram Oxford bromide 20 MG TAKE ONE TABLET BY MOUTH EVERY EVENING Orally Once a day Active Completed/Discontinued Medications Medication Drug Class(es) Dates Sig (Normalized) Sig (Original) doxycycline hyclate 100 mg oral capsule (5 sources) Tetracycline-cla ss Drug Start: 11-12-2024 End: 07-01-2025 take 1 capsule by mouth twice daily Doxycycline Hyclate 100 mg capsule Discontinued 100 MG PO Twice daily November 12, 2024 1:00am July 01, 2025 9:01am Start: 01-04-2023 take 1 capsule by [facility] twice daily as needed Doxycycline Hyclate 100 MG 1 capsule Orally Twice daily for 7 days Dec, Not-Taking/PRN Problems Active Problems Problem Classification Problem Date Documented Da te Episodic/Chronic Acute bronchitis (5 sources) Acute bronchitis; Translations: [Acute bronchitis due to other specified organisms] Episodic Allergic reactions (16 sources) Urticaria, unspecified; Translations: [Urticaria] Onset: 08-22-2018 Episodic Anxiety disorders (11 sources) Generalized anxiety disorder; Translations: [Generalized anxiety disorder] Chronic Diabetes mellitus with complications (20 sources) Hyperglycemia due to type 2 diabetes mellitus; Translations: [Type 2 diabetes mellitus with hyperglycemia] Chronic Diabetes mellitus without complication (16 sources) Impaired fasting glycemia; Translations: [Impaired fasting glucose] Episodic Disorders of lipid metabolism (11 sources) Hypercholesterolemi a; Translations: [Pure hypercholesterolemi a, [...] diagnosis of hypertension Episodic Other circulatory disease (3 sources) Elevated blood-pressure reading without diagnosis of hypertension; Translations: [Elevated blood-pressure reading, without diagnosis of hypertension] 02-11-2024 Episodic Other liver diseases (1 source) Steatosis of liver; Translations: [Fatty (change of) liver, not elsewhere classified] 06-23-2024 Chronic Other liver diseases (3 sources) Fatty (change of) liver, not elsewhere classified; Translations: [Other chronic nonalcoholic liver disease] 06-25-2024 Chronic Other nutritional; endocrine; and metabolic disorders (8 sources) Overweight; Translations: [Overweight] 02-11-2024 Episodic Other nutritional; endocrine; and metabolic disorders (2 sources) Overweight; Translations: [Overweight] Episodic Other screening for suspected conditions (not mental disorders or infectious disease) (6 sources) Encounter for screening for malignant neoplasm [...] BASO # 0.0 103/ul Normal 0.0-0.1 [facility] Comment on above: Performed By: #### C BC #### [facility] [address] [place] [address] Dr. Matt Hoang Basophils/100 WBC (Bld) 0.2 % Normal 0.2-2.0 [facility] Comment on above: Performed By: #### C BC #### [facility] [address] [place] [address] Dr. Matt Hoang EO # 0.1 103/ul Normal 0.0-0.7 [facility] Comment on above: Performed By: #### C BC #### [facility] [address] [place] [address] Dr. Matt Hoang Eosinophils/100 WBC (Bld) 1.5 % Normal 0.9-7.0 [facility] Comment on above: Performed By: #### C BC #### [facility] [address] [place] [address] Dr. Matt Hoang Erythrocyte distribution width (RBC) [Ratio] 12.5 % Normal 11.0-15.0 [facility] Comment on above: Performed By: #### C BC #### [facility] [address] [place] [address] Dr. Matt Hoang Hematocrit (Bld) [Volume fraction] 46.7 % Normal 42.0-54.0 [facility] Comment on above: Performed By: #### C BC #### [facility] [address] [place] [address] Dr. Matt Hoang Hemoglobin (Bld) [Mass/Vol] 15.4 g/dL Normal 14.0-18.0 [facility] Comment on above: Performed By: #### C BC #### [facility] [address] [place] [address] Dr. Matt Hoang IG # 0.01 10e3/ul Normal 0.00-0.03 [facility] Comment on above: Performed By: #### C BC #### [facility] [address] [place] [address] Dr. Matt Hoang IG % 0.2 % Normal 0.0-0.5 [facility] Comment on above: Performed By: #### C BC #### [facility] [address] [place] [address] Dr. Matt Hoang LYMPH # 1.8 103/ul Normal 1.2-3.8 [facility] Comment on above: Performed By: #### C BC #### [facility] [address] [place] [address] Dr. Matt Hoang Lymphocytes/100 WBC (Bld) 30.0 % Normal 20.5-60.0 [facility] Comment on above: Performed By: #### C BC #### [facility] [address] [place] [address] Dr. Matt Hoang MANUAL DIFF REQ NO Normal [facility] Comment on above: Performed By: #### C BC #### [facility] [address] [place] [address] Dr. Matt Hoang MCH (RBC) [Entitic mass] 31.5 pg Normal 25.9-34.0 [facility] Comment on above: Performed By: #### C BC #### [facility] [address] [place] [address] Dr. Matt Hoang MCHC (RBC) [Mass/Vol] 33.0 g/dL Normal 29.9-35.2 [facility] Comment on above: Performed By: #### C BC #### [facility] [address] [place] [address] Dr. Matt Hoang MCV (RBC) [Entitic vol] 95.5 fL Critically high 80.0-94.0 [facility] Comment on above: Performed By: #### C BC #### [facility] [address] [place] [address] Dr. Matt Hoang MONO # 0.6 103/ul Normal 0.3-0.8 [facility] Comment on above: Performed By: #### C BC #### [facility] [address] [place] [address] Dr. Matt Hoang Monocytes/100 WBC (Bld) 10.6 % Normal 1.7-12.0 [facility] Comment on above: Performed By: #### C BC #### [facility] [address] [place] [address] Dr. Matt Hoang NEUT # 3.4 103/ul Normal 1.4-6.5 [facility] Comment on above: Performed By: #### C BC #### [facility] [address] [place] [address] Dr. Matt Hoang Neutrophils/100 WBC (Bld) 57.5 % Normal 43.0-75.0 [facility] Comment on above: Performed By: #### C BC #### [facility] [address] [place] [address] Dr. Matt Hoang Platelet mean volume (Bld) [Entitic vol] 9.6 fL Normal 9.5-13.5 [facility] Comment on above: Performed By: #### C BC #### [facility] [address] [place] [address] Dr. Matt Hoang PLT 231 103/ul Normal 150-450 [facility] Comment on above: Performed By: #### C BC #### [facility] [address] [place] [address] Dr. Matt Hoang RBC 4.89 106/ul Normal 4.70-6.10 [facility] Comment on above: Performed By: #### C BC #### [facility] [address] [place] [address] Dr. Matt Hoang WBC 5.8 103/ul Normal 4.0-11.0 [facility] Comment on above: Performed By: #### C BC #### [facility] [address] [place] [address] Dr. Matt Hoang LIPID PROFILEon 03-20-2022 CHOL-HDL RATIO NORM SEE BELOW Normal [facility] Comment on above: Result Comment: 3.3 - 4.4 LOW RISK 4.4 - 7.1 AVERAGE RISK 7.1 - 11.0 MODERATE RISK >11.0 HIGH RISK Performed By: #### L IPID, CMP #### [facility] [address] [place] [address] Dr. Matt Hoang Cholesterol [Mass/Vol] 252 mg/dL Critically high <=200 [facility] Comment on above: Performed By: #### L IPID, CMP #### [facility] [address] [place] [address] Dr. Matt Hoang Cholesterol in HDL [Mass/Vol] 45 mg/dL Normal 40-60 [facility] Comment on above: Performed By: #### L IPID, CMP #### [facility] [address] [address] [address] Matt Hoang Cholesterol in LDL [Mass/Vol] 183.2 mg/dL Normal [facility] Comment on above: Performed By: #### L IPID, CMP #### [facility] [address] [address] [address] Matt oHang Cholesterol.total/ Cholesterol in HDL [Mass ratio] 5.6 {ratio} Normal [facility] Comment on above: Performed By: #### L IPID, CMP #### [facility] [address] [address] [address] Matt Hoang HDL NORMAL > or = 60 mg/dl - LO W CARDIOVASCULAR RISK <40 mg/dl - HIGH CARDIOVASCULAR RISK Normal [facility] Comment on above: Performed By: #### L IPID, CMP #### [facility] [address] [place] [address] Dr. Matt Hoang LDL CALC NORMAL SEE BELOW Normal [facility] Comment on above: Result Comment: <100 mg/dl OPTIMAL 100 - 129 mg/dl NEAR OR ABOVE OPTIMAL 130 - 159 mg/dl BORDERLINE HIGH 160 - 189 mg/dl HIGH >190 mg/dl VERY HIGH Performed By: #### L IPID, CMP #### [facility] [address] [address] [address] Matt Hoang Triglyceride [Mass/Vol] 119 mg/dL Normal <=150 [facility] Comment on above: Performed By: #### L IPID, CMP #### [facility] [address] [address] [address] Matt Hoang VLDL CALC 23.8 mg/dL Normal [facility] Comment on above: Performed By: #### L IPID, CMP #### [facility] [address] [address] [address] Matt Hoang PROF 14(COMP METB)on 022 Albumin [Mass/Vol] 4.3 g/dL Normal 3.4-5.0 [facility] Comment on above: Performed By: #### L IPID, CMP #### [facility] [address] [address] [address] Matt Hoang Albumin/Globulin [Mass ratio] 1.3 {ratio} Normal [facility] Comment on above: Performed By: #### L IPID, CMP #### [facility] [address] [address] [address] Matt Hoang ALP [Catalytic activity/Vol] 52 U/L Normal 46-116 [facility] Comment on above: Performed By: #### L IPID, CMP #### [facility] [address] [address] [address] Matt Hoang ALT [Catalytic activity/Vol] 76 U/L Critically high 16-63 [facility] Comment on above: Performed By: #### L IPID, CMP #### [facility] [address] [address] [address] Matt Hoang Anion gap [Moles/Vol] 12.1 mmol/L Normal [facility] Comment on above: Performed By: #### L IPID, CMP #### [facility] [address] [place] [address] Dr. Matt Hoang AST [Catalytic activity/Vol] 27 U/L Normal 15-37 [facility] Comment on above: Performed By: #### L IPID, CMP #### [facility] [address] [address] [address] Matt Hoang Bilirubin [Mass/Vol] 0.4 mg/dL Normal 0.2-1.0 [facility] Comment on above: Performed By: #### L IPID, CMP #### [facility] [address] [address] [address] Matt Hoang Calcium [Mass/Vol] 8.7 mg/dL Normal 8.5-10.1 [facility] Comment on above: Performed By: #### L IPID, CMP #### [facility] [address] [address] [address] Matt Hoang Chloride [Moles/Vol] 104 mmol/L Normal 98-107 [facility] Comment on above: Performed By: #### L IPID, CMP #### [facility] [address] [place] [address] Dr. Matt Hoang CO2 [Moles/Vol] 28.3 mmol/L Normal 21.0-32.0 [facility] Comment on above: Performed By: #### L IPID, CMP #### [facility] [address] [place] [address] Dr. Matt Hoang Creatinine [Mass/Vol] 0.88 mg/dL Normal 0.70-1.30 [facility] Comment on above: Performed By: #### L IPID, CMP #### [facility] [address] [place] [address] Dr. Matt Hoang EGFR-AF SWISS >60 Normal >=60 [facility] Comment on above: Performed By: #### L IPID, CMP #### [facility] [address] [place] [address] Dr. Matt Hoang EGFR-NON AF SWISS >60 Normal >=60 [facility] Comment on above: Performed By: #### L IPID, CMP #### [facility] [address] [place] [address] Dr. Matt Hoang Globulin (S) [Mass/Vol] 3.2 g/dL Normal [facility] Comment on above: Performed By: #### L IPID, CMP #### [facility] [address] [place] [address] Dr. Matt Hoang Glucose [Mass/Vol] 125 mg/dL Critically high 74-106 [facility] Comment on above: Performed By: #### L IPID, CMP #### [facility] [address] [place] [address] Dr. Matt Hoang Potassium [Moles/Vol] 4.4 mmol/L Normal 3.5-5.1 [facility] Comment on above: Performed By: #### L IPID, CMP #### [facility] [address] [place] [address] Dr. Matt Hoang Protein [Mass/Vol] 7.5 g/dL Normal 6.1-8.2 [facility] Comment on above: Performed By: #### L IPID, CMP #### [facility] [address] [place] [address] Dr. Matt Hoang Sodium [Moles/Vol] 140 mmol/L Normal 136-145 [facility] Comment on above: Performed By: #### L IPID, CMP #### [facility] [address] [place] [address] Dr. Matt Hoang Urea nitrogen [Mass/Vol] 16.0 mg/dL Normal 7.0-18.0 [facility] Comment on above: Performed By: #### L IPID, CMP #### [facility] [address] [place] [address] Dr. Matt Hoang Urea nitrogen/Creatinin e [Mass ratio] 18.2 mg/mg Normal [facility] Comment on above: Performed By: #### L IPID, CMP #### [facility] [address] [place] [address] Dr. Matt Hoang CULTURE THROATon 07-05-2021 CULTURE THROAT Culture Observations : NORMAL RESPIRATORY COLBY. Normal [facility] Comment on above: Performed By: #### S JEN THRTCX #### [facility] [address] [place] [address] Papito Gonsales STREPT SCREENon 07-05-2021 STREP SCREEN A Negative Normal NEGATIVE [facility] Comment on above: Performed By: #### S JEN, THRTCX #### [facility] [address] [place], [place] [id number] Papito Gonsales Vital Signs Date Time Vital Sign Value Performing Clinician Facility 07-01-2025 09:08040 Body height 177.8 cm Kiddie Kist DO Work Phone: [facility] 07-01-2025 09:08040 Body mass index (BMI) [Ratio] 29.2 kg/m2 Ashish Sistemic DO Work Phone: [facility] 07-01-2025 09: Body weight 92.53 kg Ashish Sistemic DO Work Phone: [facility] 07-01-2025 09:08-0400 Diastolic blood pressure 89 mm[Hg] Ashish Ball DO Work Phone: [facility] 07-01-2025 09:08-0400 Heart rate 84 /min Ashish Ball DO Work Phone: [facility] 07-01-2025 09:08-0400 Respiratory rate 12 /min Ashish Ball DO Work Phone: [facility] 07-01-2025 09:08-0400 Systolic blood pressure 139 mm[Hg] Ashish Ball DO Work Phone: [facility] 06-25-2024 09:05-0400 Body height 177.8 cm [facility] 06-25-2024 09:05-0400 Body mass index (BMI) [Ratio] 29.2 kg/m2 [facility] 06-25-2024 09:05-0400 Body weight 92.24 kg [facility] 06-25-2024 09:05-0400 Diastolic blood pressure 92 mm[Hg] [facility] 06-25-2024 09:05-0400 Heart rate 89 /min [facility] 06-25-2024 09:05-0400 Respiratory rate 12 /min [facility] 06-25-2024 09:05-0400 Systolic blood pressure 130 mm[Hg] [facility] 02-13-2024 14:58-0400 Body height 177.8 cm [facility] 02-13-2024 14:58-0400 Body mass index (BMI) [Ratio] 29.4 kg/m2 [facility] 02-13-2024 14:58-0400 Body weight 93.09 kg [facility] 02-13-2024 14:58-0400 Diastolic blood pressure 106 mm[Hg] [facility] 02-13-2024 14:58-0400 Respiratory rate 12 /min [facility] 02-13-2024 14:58-0400 Systolic blood pressure 137 mm[Hg] [facility] 12-05-2023 09:30-0500 Body height 177.8 cm Ashish Ball Other [facility] 12-05-2023 09:30-0500 Body mass index (BMI) [Ratio] 29.04 kg/m2 Ashish Ball Other [facility] Other 12-05-2023 09:30-0500 Body weight 91.81 kg Ashish Ball Other [facility] Other 12-05-2023 09:30-0500 Body weight 91.8 kg [facility] 12-05-2023 09:30-0500 Diastolic blood pressure 96 mm[Hg] Ashish Ball Other [facility] 12-05-2023 09:30-0500 Respiratory rate 12 /min Ashish Ball Other [facility] Other 12-05-2023 09:30-0500 Systolic blood pressure 141 mm[Hg] Ashish Ball Other [facility] 06-23-2023 11:00-0400 Body height 177.8 cm Ashish Ball Other [facility] Other 06-23-2023 11:00-0400 Body mass index (BMI) [Ratio] 28.72 kg/m2 Ashish Ball Other [facility] Other 06-23-2023 11:00-0400 Body weight 90.81 kg Ashish Ball Other [facility] Other 06-23-2023 11:00-0400 Diastolic blood pressure 87 mm[Hg] Ashish Ball Other [facility] Other 06-23-2023 11:00-0400 Respiratory rate 12 /min Ashish Ball Other [facility] Other 06-23-2023 11:00-0400 Systolic blood pressure 129 mm[Hg] Ashish Hoffman Other [facility] Other Encounters Encounter Date Encounter Type Care Provider Facility Start: 07-01-2025 End: 07-01-2025 ambulatory Ashish Hoffman DO Work Phone: [facility] Work Phone: Start: 07-01-2025 End: 07-01-2025 Patient encounter procedure Ashish Hoffman -[facility] Work Phone: Start: 07-01-2025 End: 07-01-2025 Patient encounter status Ashish Hoffman [facility] Start: 06-25-2024 End: 06-25-2024 ambulatory [facility] Work Phone: Start: 06-25-2024 End: 06-25-2024 Encounter for general adult medical examination without abnormal findings [facility] Start: 06-25-2024 End: 06-25-2024 Patient encounter procedure [facility] Work Phone: Start: 02-13-2024 End: 02-13-2024 ambulatory [facility] Work Phone: Start: 02-13-2024 End: 02-13-2024 Patient encounter procedure [facility] Work Phone: Start: 02-09-2024 End: 02-10-2024 ambulatory REGINA COFFEY Not Available Start: 02-08-2024 End: 02-08-2024 ambulatory REGINA COFFEY Not Available Start: 12-05-2023 End: 12-05-2023 ambulatory Ashish Hoffman Other [facility] Other Start: 12-05-2023 Office outpatient vi sit 25 minutes Ashish Hoffman [facility] Start: 12-05-2023 End: 12-05-2023 Patient encounter procedure [facility] Work Phone: Start: 11-30-2023 End: 11-30-2023 ambulatory Ashish Hoffman Other [facility] Other Start: 11-30-2023 Telephone encounter Ashish Hoffman [facility] Start: 07-20-2023 End: 07-20-2023 ambulatory Ashish Hoffman Other [facility] Other Start: 07-20-2023 Office outpatient vi sit 15 minutes Ashish Hoffman [facility] Start: 06-23-2023 End: 06-23-2023 ambulatory Ashish Hoffman Other [facility] Other Start: 06-23-2023 Encounter for genera l adult medical examination without abnormal findings Ashish Hoffman [facility] Start: 06-23-2023 Periodic preventive med est patient 40-64yrs Ashish Hoffman [facility] Start: 05-19-[address] ASHISH HOFFMAN Facili ty:[facility] Start: 03-24-2022 Encounter for genera l adult medical examination without abnormal findings DR ASHISH HOFFMAN [facility] Start: 03-20-2022 End: 03-21-[address] ASHISH HOFFMAN Facility:[facility] Start: 03-20-2022 End: 03-21-2022 Encounter for general adult medical examination without abnormal findings DR ASHISH HOFFMAN Facility:[facility] Start: 03-15-2022 Adult health examination Ashish Hoffman Other [facility] Other Start: 07-05-2021 End: 07-05-2021 ambulatory RODRIGO CASTORENA Facility:[facility] Procedures Date Procedure Procedure Detail Performing Clinician Start: 03-20-2022 PSA screening RODRIGO CAICEDO Comment on above: Performed By: #### P [facility] #### [facility] [address] [place] [address] Dr. Matt Hoang Plan of Treatment Date Care Activity Detail Author Comprehensive metabo lic 1999 panel - Serum or Plasma [facility] Comprehensive metabo lic 1999 panel - Serum or Plasma [facility] Immunizations Immunization Date Immunization Notes Care Provider Fa monity 11-13-2022 influenza, injectabl e, quadrivalent, preservative free Ashish Hoffman Other [facility] 03-06-2021 COVID-19 Vaccine Pfi zer - Documentation Purposes Only Ashish Hoffman Other [facility] 02-13-2021 COVID-19 Vaccine Pfi zer - Documentation Purposes Only Ashish Hoffman Other [facility] 09-18-2015 tetanus and diphther ia toxoids, adsorbed, preservative free, for adult use (5 Lf of tetanus toxoid and 2 Lf of diphtheria toxoid) Ashish Hoffman Other [facility] Payers Date Payer Category Payer Unknown [id number] 2.16.84 [id number] 1970 Unknown [id number] 2.16.84 [id number] 1970 Unknown [id number] 2.16.84 [id number] 1970 Unknown [id number] 2.16.84 [id number] 1970 Unknown [id number] 2.16.84 [id number] 1959 Private Health Insurance [id number] 1959 Self-pay [id number] 1959 Unknown [id number] [facility] [id number] Social History Date Type Detail Facility Sex Assigned At [facility] Other Start: 02-11-2024 Tobacco smoking stat us KYIS Never smoked tobacco (finding) [facility] Start: 1970 Sex Assigned At Male F [facility] Sex Male (finding) [facility] Evaluation note 12-05-2023 Note Date & [...] moisturizers and cortisone as needed Benadryl at [facility] Other Evaluation note 11-30-2023 Note Date & Type Note Facility 11-30-2023 Evaluation note Encounter Date Diagnosis Assessment Notes Nov, Type 2 diabetes mellitus with hyperglycemia , without long-term current use of insulin (ICD-10 - E11.65) [facility] Other Evaluation note 07-20-2023 Note Date & [...] locally. Recommend testing. He denies known exposure [facility] Other Evaluation note 06-23-2023 Note Date & [...] tolerable Continue healthy diet, exercise Continue Bupropion 27 Bryce, 2023 Screening PSA (prostate specific antigen) (ICD-10 - Z12.5) Yearly CHECO and PSA [facility] Other Evaluation note Note Date & Type Note Facility Evaluation note No assessment information availa ble [facility] Work Phone: Evaluation note Note Date & Type Note Facility Evaluation note Diagnosis Onset Date Elevated cholesterol acute ANGELITO (generalized anxiety disorder) acute Metabolic dysfunction-associ ated steatotic liver disease (MASLD) acute Overweight acute [id number] acute Screening PSA (prostate specific antigen) noneactive Wellness examination noneact tremayne [facility] Work Phone: Evaluation note Note Date & Type Note Facility Evaluation note Diagnosis Onset Date Resolution Elevated cholesterol acute 2024 8:57am ANGELITO (generalized anxiety disorder) acute July 01 8:57am Metabolic dysfunction-associated steatotic liver disease (MASLD) acute July 01, 2025 8:57am Overweight acute July 01 8:57am Type 2 diabetes mellitus with hyperglycemia, without long-term current use acute June 8:57am Screening PSA (prostate specific antigen) noneactive July 01 8:57am Wellness examination noneactive 2024 8:57am [facility] Work Phone: History general Narrative - [...] organisms Medical History Urticaria Surgical History CYSTOSCOPY 2009 Hospitalization History SEE SURGICAL HX [facility] Other Reason for referral (narrative) Note Date & Type Note Facility Reason for referral (narrative) No reason for referral information available [facility] Work Phone: Summary Purpose Family History Relationship Condition Age [...] Metabolic dysfunction-associated steatotic liver disease (MASLD) Overweight [id number] Screening PSA (prostate specific antigen) Wellness examination Chief Complaint Admit Date wellness July 01, 2025 8:5 7am Reason for Visit Admit Date Elevated cholesterol July 01, 2025 8: 57am ANGELITO (generalized anxiety disorder) Augus t 2024 8:57am Metabolic dysfunction-associ ated steatotic liver disease (MASLD) July 01, 2025 8:57am Overweight July 01, 2025 8:5 7am Type 2 diabetes mellitus wit h hyperglycemia, without long-term current use July 01, 2025 8:57am Screening PSA (prostate specific antigen ) July 01, 2025 8:57am Wellness examination July 01, 2025 8: 57am Additional Source Comments (unrecognized sect ion and content) No Status Records FoundNo Status Records Found INFORMATION SOURCE (unrecogn ized section and content) DATE CREATED AUTHOR 05/20/2022 [facility] DATE CREATED AUTHOR AUTHOR'S ORGANIZ ATION 02/12/2024 [facility] EPIC REASON FOR VISIT (unrecogniz [...] June 25, 2024 End: June 25, 2024 Team Status: Inactive Member Role Status Dates Ashish Hoffman DO Primary Care Provider Active Start: July 01, 2025 End: July 01, 2025 Ashish Hoffman DO Attending Provider Active Sta rt: July 01, 2025 End: July 01, 2025 Goals (unrecognized section and content) Goals may [...] BE BASED ON THE PRIMARY CLINICAL RECORDS. [facility] [employer] [facility]. provides no warranty or guarantee of the accuracy or completeness of information in this document.
[2025-07-22 09:52] LABS: Hematocrit 46.2 % (42.0-54.0); Hemoglobin 15.6 g/dL (14.0-18.0); Immature Granulocytes Abs Auto 0.01 10^3/uL (0.00-0.03); Immature Granulocytes Pct Auto 0.2 % (0.0-0.5); Lymphocytes Absolute Auto 1.8 10^3/uL (1.2-3.8); Mean Corpuscular HGB Conc 33.8 g/dL (29.9-35.2); Mean Corpuscular Hemoglobin 32.0 pg (25.9-34.0); Mean Corpuscular Volume 94.9 fL (80.0-94.0); Platelet Count 216 10^3/uL (150-450); Red Blood Count 4.87 10^6/uL (4.70-6.10); White Blood Count 6.0 10^3/uL (4.0-11.0)
[2025-07-22 11:19] LABS: Alanine Aminotransferase 53 U/L (16-63); Albumin Globulin Ratio 1.2; Albumin Level 4.2 g/dL (3.4-5.0); Alkaline Phosphatase 48 U/L (46-116); Anion Gap 11.0; Aspartate Amino Transferase 26 U/L (15-37); Blood Urea Nitrogen 21.0 mg/dL (7.0-18.0); Calcium 8.9 mg/dL (8.5-10.1); Carbon Dioxide 29.5 mmol/L (21.0-32.0); Chloride 105 mmol/L (98-107); Cholesterol 246 mg/dL (<=200); Estimated GFR (African America >60 (>=60 mL/min/1.73m^2); Estimated GFR (Non-African Ame >60 (>=60 mL/min/1.73m^2); Globulin 3.4 g/dL; Glucose 128 mg/dL (74-106); HDL Cholesterol 48 mg/dL (40-60); Potassium 4.5 mmol/L (3.5-5.1); Sodium 141 mmol/L (136-145); Thyroid Stimulating Hormone 2.587 uIU/mL (0.358-3.740); Total Protein 7.6 g/dL (6.4-8.2); Triglycerides 116 mg/dL (<=150); VLDL CHOLESTEROL 23.2 mg/dL
[2025-07-22 11:48] LABS: Microalbum Creatinine Ratio Ur 15.0 mg/g (0.0-29.9)
== END 2025-07-22 09:22 | disposition home or self-care (01) ==
LOC: LAB 09:25
PROVIDERS: PCP Internal Medicine; Visit Provider Internal Medicine
DX: Z00.00 Encounter for general adult medical examination without abnormal findings (principal); Z12.5 Encounter for screening for malignant neoplasm of prostate
CPT/HCPCS: 36415; 80053; 80061; 82043; 82570; 83036; 84443; 85025; G0103